=== PATIENT | male | born 1945 | race Hispanic/Latino ===

== ENCOUNTER 2020-12-07 14:41 | Emergency (ER) | payer OTHER, MEDICARE ==
[~2020-12-07] VITALS: Ht 154.9 cm; Wt 69.9 kg
[2020-12-07 14:42] VITALS: BP 168/93
[2020-12-07 18:00] VITALS: BP 154/91
[2020-12-07] MEDS ORDERED: 0.9%NACL 1000ML 1,000 ML IV ONE (18:30)
[2020-12-07] MEDS ORDERED: IOHEXOL-350 75 ML VIAL IV ONE (18:32)
[2020-12-07 18:41] LABS: BASOPHILS % (AUTO) 0.5 % (0.0-5.0); CREATININE 0.9 mg/dL (0.5-1.5); EOSINOPHILS % (AUTO) 1.5 % (0.0-8.0); HEMATOCRIT 40.4 % (42-54); LYMPHOCYTES % (AUTO) 25.3 % (21.0-51.0); MEAN CORPUSCULAR HEMOGLOBIN 29.1 pg (27.0-33.0); MEAN CORPUSCULAR HGB CONC 33.7 g/dL (32.0-36.0); MEAN CORPUSCULAR VOLUME 86.5 fL (79-99); MONOCYTES % (AUTO) 6.3 % (3.0-13.0); NEUTROPHILS % (AUTO) 66.3 % (40.0-77.0); PLATELET COUNT (AUTO) 246 K/uL (130-400); POTASSIUM 4.2 mmol/L (3.5-5.1); RED BLOOD CELL COUNT(AUTO) 4.67 MIL/uL (4.50-6.20); WHITE BLOOD COUNT (AUTO) 8.6 K/uL (4.8-10.8)
[2020-12-07 18:46] LABS: ALBUMIN 4.1 g/dL (3.5-5.0); BILIRUBIN,TOTAL 0.3 mg/dL (0.2-1.0); TOTAL PROTEIN, SERUM 8.4 g/dL (6.0-8.3)
[2020-12-07 20:17] VITALS: BP 159/77
[2020-12-07 20:45] LABS: APPEARANCE,URINE Clear (CLEAR); BILIRUBIN,URINE Negative (NEGATIVE); COLOR,URINE Yellow (YELLOW); GLUCOSE, URINE (UA) Negative (NEGATIVE); KETONES,URINE Negative (NEGATIVE); LEUKOCYTE ESTERASE ,URINE Negative (NEGATIVE); NITRATE,URINE Negative (NEGATIVE); OCCULT BLOOD,URINE Negative (NEGATIVE); PH,URINE 6.5 (5.0-8.0); PROTEIN,URINE Negative (NEGATIVE); UROBILINOGEN,URINE 0.2 mg/dL (0.2-1.0)
[2020-12-07] MEDS ORDERED: HYDR25SU38 RC (21:11)
[2020-12-07] MEDS ORDERED: HYDR26CR2 TP (21:11)
[2020-12-07] MEDS ORDERED: ZINC57OI3 TP (21:11)
== END 2020-12-07 21:21 | disposition home or self-care (01) ==
LOC: EDH 14:41
DX: K64.9 Unspecified hemorrhoids (principal); L30.9 Dermatitis, unspecified; I10 Essential (primary) hypertension; E78.00 Pure hypercholesterolemia, unspecified; Z79.899 Other long term (current) drug therapy
CPT/HCPCS: 36415; 74177; 80053; 81003; 85025; 99285; J7030; Q9967

== ENCOUNTER → 2022-09-26 | Outpatient (CLI) | payer OTHER, MEDICARE ==
[~2022-09-26] MED LIST: HYDR25SU38 RC; HYDR26CR2 TP; ZINC57OI3 TP
== END | disposition home or self-care (01) ==
LOC: SHCH 13:01
PROVIDERS: ATTEND Internal Medicine Cardiovascular Disease
DX: I07.1 Rheumatic tricuspid insufficiency (principal); I11.9 Hypertensive heart disease without heart failure; I20.9 Angina pectoris, unspecified; E78.5 Hyperlipidemia, unspecified; I65.23 Occlusion and stenosis of bilateral carotid arteries
CPT/HCPCS: 93306; 93880

== ENCOUNTER → 2022-10-16 | Outpatient (CLI) | payer OTHER, MEDICARE ==
[~2022-10-16] MED LIST changes: +REGADENOSON 0.4 MG/5 ML PF SYG IVP ONE
== END | disposition home or self-care (01) ==
LOC: SHCH 09:17
PROVIDERS: ATTEND Internal Medicine Cardiovascular Disease
DX: I20.9 Angina pectoris, unspecified (principal)
CPT/HCPCS: 78452; 96374; 93017; J2785; A9500 ×2